=== PATIENT | male | born 1950 | race Caucasian/White ===

== ENCOUNTER 2017-08-12 09:02 | Inpatient (IN) | payer OTHER ==
[~2017-08-12] VITALS: Ht 182.9 cm; Wt 103.7 kg
[2017-08-12 10:11] LABS: HEMATOCRIT 50.5 % (38.0-50.0); HEMOGLOBIN 17.5 G/DL (12.5-16.6); MCH 29.2 PG (29.0-34.0); MCHC 34.7 G/DL (30.0-36.0); MCV 84.3 FL (86-99); NRBC (%) 0.1 /100 WBC (0-0); PLATELET COUNT 378 K/uL (156-360); RBC DIS.WIDTH-CV 14.5 % (11.8-14.6); RBC DIS.WIDTH-SD 43.8 % (39-53); RED BLOOD COUNT 5.99 M/uL (4.00-5.50); WHITE BLOOD COUNT 17.5 K/uL (4.1-10.2)
[2017-08-12 10:15] LABS: ALBUMIN 4.6 g/dL (3.2-4.8)
[2017-08-12 10:16] LABS: CHLORIDE 97 mEq/L (99-109); POTASSIUM 3.7 mEq/L (3.7-5.4); SODIUM 140 mEq/L (136-147)
[2017-08-12 10:18] LABS: GLUCOSE 158 mg/dL (70-99); TOTAL PROTEIN 8.5 g/dL (6.4-8.3)
[2017-08-12 10:20] LABS: TOTAL BILIRUBIN 0.4 mg/dL (0.0-1.0)
[2017-08-12 10:21] LABS: ALKALINE PHOSPHATASE 72 IU/L (3-129); CREATININE 1.5 mg/dL (0.6-1.3); GFR ESTIMATE (CALCULATED) 50 mL/min/ (58.99-99999)
[2017-08-12 10:23] LABS: AST (GOT) 34 IU/L (2-34); UREA NITROGEN (BUN) 16 mg/dL (9-23)
[2017-08-12 10:24] LABS: ALT (GPT) 68 IU/L (3-49)
[2017-08-12 10:25] LABS: LIPASE 33 U/L (1.0-51.0)
[2017-08-12 13:07] LABS: APPEARANCE CLEAR ((CLEAR)); BILIRUBIN NEGATIVE; BLOOD NEGATIVE; COLOR YELLOW ((YELLOW)); GLUCOSE (STRIP) NEGATIVE; KETONES NEGATIVE; LEUKOCYTES NEGATIVE; NITRITE NEGATIVE; PROTEIN (STRIP) NEGATIVE; SPECIFIC GRAVITY 1.053 (1.000-1.030); UROBILINOGEN 0.2 MG/DL (0.2-1.0)
[2017-08-12] MEDS ORDERED: ALPRAZOLAM0.25 M2 PO (14:01)
[2017-08-12] MEDS ORDERED: OMEPRAZOLE40 M1 PO (14:01)
[2017-08-12] MEDS ORDERED: DICLOFENAC SODI75 MG PO (14:02)
[2017-08-12] MEDS ORDERED: CELEBREX200 MG PO (14:03)
[2017-08-12] MEDS ORDERED: LYRICA50 MG PO (14:03)
[2017-08-12] MEDS ORDERED: ZESTORETIC 20-1 EAC1 PO (14:04)
[2017-08-12] MEDS ORDERED: CENTRUM SILVER1 EAC5 PO (14:04)
[2017-08-13] VITALS (7 sets, daily range): BP systolic 130–150; BP diastolic 69–86
[2017-08-13 07:12] LABS: CHLORIDE 107 MEQ/L (99-109); CREATININE 1.2 MG/DL (0.6-1.3); GFR ESTIMATE (CALCULATED) > 59 mL/min/ (58.99-99999); GLUCOSE 133 mg/dL (70-99); MAGNESIUM 1.6 mg/dl (1.3-2.7); PHOSPHORUS 3.2 mg/dL (2.5-4.9); POTASSIUM 4.1 MEQ/L (3.7-5.4); SODIUM 142 MEQ/L (136-147); UREA NITROGEN (BUN) 18 mg/dL (9-23)
[2017-08-13 07:26] LABS: HEMATOCRIT 37.2 % (38.0-50.0); MCH 29.2 PG (29.0-34.0); MCHC 33.3 G/DL (30.0-36.0); MCV 87.5 FL (86-99); PLATELET COUNT 267 K/uL (156-360); RBC DIS.WIDTH-CV 14.9 % (11.8-14.6); RBC DIS.WIDTH-SD 47.8 % (39-53); WHITE BLOOD COUNT 10.2 K/uL (4.1-10.2)
[2017-08-13 07:30] LABS: HEMOGLOBIN 12.4 G/DL (12.5-16.6); RED BLOOD COUNT 4.25 M/uL (4.00-5.50)
[2017-08-14 00:38] VITALS: BP 128/76
[2017-08-14 04:00] VITALS: BP 147/80
[2017-08-14 05:29] LABS: HEMATOCRIT 34.1 % (38.0-50.0); HEMOGLOBIN 10.9 G/DL (12.5-16.6); MCV 87.7 FL (86-99); PLATELET COUNT 253 K/uL (156-360); RBC DIS.WIDTH-CV 15.2 % (11.8-14.6); RBC DIS.WIDTH-SD 48.3 % (39-53); RED BLOOD COUNT 3.89 M/uL (4.00-5.50); WHITE BLOOD COUNT 10.5 K/uL (4.1-10.2)
[2017-08-14 06:00] LABS: CHLORIDE 107 MEQ/L (99-109); CREATININE 0.9 MG/DL (0.6-1.3); GFR ESTIMATE (CALCULATED) > 59 mL/min/ (58.99-99999); GLUCOSE 121 mg/dL (70-99); SODIUM 141 MEQ/L (136-147); UREA NITROGEN (BUN) 15 mg/dL (9-23)
[2017-08-14 07:05] VITALS: BP 135/76
[2017-08-14 12:15] VITALS: BP 133/69
[2017-08-14 15:27] VITALS: BP 147/76
[2017-08-14 19:15] VITALS: BP 148/91
[2017-08-15] VITALS (7 sets, daily range): BP systolic 155–179; BP diastolic 76–90
[2017-08-15 06:04] LABS: HEMATOCRIT 31.4 % (38.0-50.0); HEMOGLOBIN 10.1 G/DL (12.5-16.6); MCH 28.1 PG (29.0-34.0); MCHC 32.2 G/DL (30.0-36.0); MCV 87.2 FL (86-99); PLATELET COUNT 186 K/uL (156-360); RBC DIS.WIDTH-CV 14.8 % (11.8-14.6); RBC DIS.WIDTH-SD 47.9 % (39-53); WHITE BLOOD COUNT 10.4 K/uL (4.1-10.2)
[2017-08-15 06:52] LABS: CHLORIDE 104 MEQ/L (99-109); CREATININE 0.7 MG/DL (0.6-1.3); GFR ESTIMATE (CALCULATED) > 59 mL/min/ (58.99-99999); GLUCOSE 117 mg/dL (70-99); POTASSIUM 4.1 MEQ/L (3.7-5.4); SODIUM 136 MEQ/L (136-147); UREA NITROGEN (BUN) 13 mg/dL (9-23)
[2017-08-15 06:59] LABS: MAGNESIUM 2.3 mg/dl (1.3-2.7)
[2017-08-15 09:33] LABS: TROP-I INTERPRETATION NEGATIVE; TROPONIN-I < 0.01 ng/mL (0.0-0.30)
[2017-08-16] VITALS (7 sets, daily range): BP systolic 139–157; BP diastolic 65–88
[2017-08-16 05:54] LABS: CHLORIDE 100 MEQ/L (99-109); CREATININE 0.8 MG/DL (0.6-1.3); GFR ESTIMATE (CALCULATED) > 59 mL/min/ (58.99-99999); GLUCOSE 101 mg/dL (70-99); POTASSIUM 3.7 MEQ/L (3.7-5.4); SODIUM 136 MEQ/L (136-147); UREA NITROGEN (BUN) 10 mg/dL (9-23)
[2017-08-16 05:57] LABS: HEMATOCRIT 30.4 % (38.0-50.0); HEMOGLOBIN 9.9 G/DL (12.5-16.6); MCH 28.3 PG (29.0-34.0); MCHC 32.6 G/DL (30.0-36.0); MCV 86.9 FL (86-99); RBC DIS.WIDTH-SD 47.8 % (39-53); WHITE BLOOD COUNT 10.7 K/uL (4.1-10.2)
[2017-08-16 06:05] LABS: PLATELET COUNT 262 K/uL (156-360)
[2017-08-17] VITALS (7 sets, daily range): BP systolic 135–156; BP diastolic 70–88
[2017-08-17 06:08] LABS: HEMATOCRIT 30.6 % (38.0-50.0); HEMOGLOBIN 10.2 G/DL (12.5-16.6); MCH 28.7 PG (29.0-34.0); MCHC 33.3 G/DL (30.0-36.0); MCV 86.2 FL (86-99); NRBC (%) 0.2 /100 WBC (0-0); PLATELET COUNT 280 K/uL (156-360); RBC DIS.WIDTH-CV 14.8 % (11.8-14.6); RBC DIS.WIDTH-SD 46.3 % (39-53); RED BLOOD COUNT 3.55 M/uL (4.00-5.50); WHITE BLOOD COUNT 10.3 K/uL (4.1-10.2)
[2017-08-17 06:32] LABS: CHLORIDE 97 MEQ/L (99-109); CREATININE 0.7 MG/DL (0.6-1.3); GFR ESTIMATE (CALCULATED) > 59 mL/min/ (58.99-99999); GLUCOSE 94 mg/dL (70-99); POTASSIUM 3.8 MEQ/L (3.7-5.4); SODIUM 134 MEQ/L (136-147); UREA NITROGEN (BUN) 10 mg/dL (9-23)
[2017-08-18 03:52] VITALS: BP 144/85
[2017-08-18 06:39] LABS: HEMATOCRIT 31.1 % (38.0-50.0); HEMOGLOBIN 10.4 G/DL (12.5-16.6); MCH 28.6 PG (29.0-34.0); MCHC 33.4 G/DL (30.0-36.0); MCV 85.4 FL (86-99); NRBC (%) 0.4 /100 WBC (0-0); PLATELET COUNT 283 K/uL (156-360); RBC DIS.WIDTH-CV 14.7 % (11.8-14.6); RBC DIS.WIDTH-SD 45.6 % (39-53); RED BLOOD COUNT 3.64 M/uL (4.00-5.50); WHITE BLOOD COUNT 9.4 K/uL (4.1-10.2)
[2017-08-18 06:56] LABS: CHLORIDE 96 MEQ/L (99-109); CREATININE 0.8 MG/DL (0.6-1.3); GFR ESTIMATE (CALCULATED) > 59 mL/min/ (58.99-99999); GLUCOSE 104 mg/dL (70-99); POTASSIUM 3.4 MEQ/L (3.7-5.4); SODIUM 135 MEQ/L (136-147); UREA NITROGEN (BUN) 9 mg/dL (9-23)
[2017-08-18 07:06] VITALS: BP 132/74
[2017-08-18] MEDS ORDERED: NORCO 5/3251 TABLET PO (10:38)
[2017-08-18] MEDS ORDERED: COLACE100 MG PO (10:38)
[2017-08-18 12:21] VITALS: BP 140/83
[2017-08-18] MEDS ORDERED: ADULT FOLDING1 EACH MC (13:58)
[2017-08-18 15:51] VITALS: BP 144/74
[2017-08-18 20:00] VITALS: BP 141/86
[2017-08-19] VITALS: BP 141/76
[2017-08-19 03:47] VITALS: BP 143/76
[2017-08-19 07:12] LABS: HEMATOCRIT 30.6 % (38.0-50.0); HEMOGLOBIN 10.1 G/DL (12.5-16.6); MCH 28.1 PG (29.0-34.0); NRBC (%) 0.3 /100 WBC (0-0); PLATELET COUNT 296 K/uL (156-360); RBC DIS.WIDTH-CV 14.8 % (11.8-14.6); RBC DIS.WIDTH-SD 45.6 % (39-53); WHITE BLOOD COUNT 9.1 K/uL (4.1-10.2)
[2017-08-19 07:25] VITALS: BP 149/84
[2017-08-19 07:40] LABS: CHLORIDE 98 MEQ/L (99-109); CREATININE 0.8 MG/DL (0.6-1.3); GFR ESTIMATE (CALCULATED) > 59 mL/min/ (58.99-99999); GLUCOSE 105 mg/dL (70-99); POTASSIUM 3.3 MEQ/L (3.7-5.4); SODIUM 137 MEQ/L (136-147); UREA NITROGEN (BUN) 9 mg/dL (9-23)
[2017-08-19 11:12] VITALS: BP 140/78
== END 2017-08-19 12:36 | disposition home or self-care (01) | DRG 329 ==
LOC: EME 09:02 → ENRESERV 13:07 → EDOF 13:08 → 4EAST 13:08 → EDOF 13:18 → ENRESERV 16:50 → EDOF 23:22 → ENRESERV 23:26 → 4EAST 08-13 01:07 → ENRESERV 08-17 18:25 → 2EAST 08-17 20:36
PROVIDERS: Internal Medicine; Physician Assistant; Surgery
DX: K56.1 Intussusception (principal); K56.50 Intestinal adhesions [bands], unspecified as to partial versus complete obstruction; K56.600 Partial intestinal obstruction, unspecified as to cause; E66.9 Obesity, unspecified; N17.9 Acute kidney failure, unspecified; D72.829 Elevated white blood cell count, unspecified; I10 Essential (primary) hypertension; K21.9 Gastro-esophageal reflux disease without esophagitis; M19.90 Unspecified osteoarthritis, unspecified site; F41.9 Anxiety disorder, unspecified; Z91.09 Other allergy status, other than to drugs and biological substances; J96.01 Acute respiratory failure with hypoxia; Z68.32 Body mass index [BMI] 32.0-32.9, adult; E83.42 Hypomagnesemia; R26.9 Unspecified abnormalities of gait and mobility; Z87.891 Personal history of nicotine dependence; R61 Generalized hyperhidrosis; E87.6 Hypokalemia; J98.11 Atelectasis; E86.0 Dehydration; K56.7 Ileus, unspecified; D62 Acute posthemorrhagic anemia; R60.1 Generalized edema; R73.9 Hyperglycemia, unspecified
CPT/HCPCS: 71045; 71046; 74177; 80048; 80053; 81003; 82948; 83605; 83690; 83735; 83880; 84100; 84484; 85027; 87040; 88307; 93005; 94640; 94640 76; 94799; 97530 GO; 97530 GP; 99202; 99281; 99285; B4087; C9113; J0131; J0330; J0360; J1100; J1170; J1644; J1650; J1815; J1885; J2405; J2543; J2765; J3010; J3475; J7030; J7040; J7042; J7050; P9047; S0074

== ENCOUNTER 2017-11-03 11:12 | Inpatient (IN) | payer OTHER ==
[~2017-11-03] VITALS: Ht 188 cm; Wt 98.3 kg
[~2017-11-03 11:12] MED LIST: ADULT FOLDING1 EACH MC; ALPRAZOLAM0.25 M2 PO; CELEBREX200 MG PO; CENTRUM SILVER1 EAC5 PO; COLACE100 MG PO; DICLOFENAC SODI75 MG PO; LYRICA50 MG PO; NORCO 5/3251 TABLET PO; OMEPRAZOLE40 M1 PO; ZESTORETIC 20-1 EAC1 PO
[2017-11-03 12:04] LABS: BASOPHIL (%) 0.3 % (0-1); BASOPHIL COUNT 0.1 K/uL (0-0.1); EOSINOPHIL (%) 1.2 % (0-5); EOSINOPHIL COUNT 0.2 K/uL (0-0.3); HEMOGLOBIN 11.5 G/DL (12.5-16.6); IMMATURE GRANULOCYTE (%) 2.4 % (0.0-0.7); LYMPHOCYTE (%) 9.2 % (15-42); LYMPHOCYTE COUNT 1.6 K/uL (1.0-2.8); MCH 25.5 PG (29.0-34.0); MCHC 32.9 G/DL (30.0-36.0); MCV 77.6 FL (86-99); MONOCYTE (%) 5.9 % (3-12); PLATELET COUNT 551 K/uL (156-360); RBC DIS.WIDTH-CV 15.4 % (11.8-14.6); RED BLOOD COUNT 4.51 M/uL (4.00-5.50); WHITE BLOOD COUNT 17.3 K/uL (4.1-10.2)
[2017-11-03 12:09] LABS: INTER. NORMALIZED RATIO 1.3
[2017-11-03 12:14] LABS: CHLORIDE 96 mEq/L (99-109); POTASSIUM 3.7 mEq/L (3.7-5.4); SODIUM 135 mEq/L (136-147)
[2017-11-03 12:16] LABS: GLUCOSE 116 mg/dL (70-99)
[2017-11-03 12:20] LABS: CREATININE 1.1 mg/dL (0.6-1.3); GFR ESTIMATE (CALCULATED) > 59 mL/min/ (58.99-99999)
[2017-11-03 12:21] LABS: UREA NITROGEN (BUN) 18 mg/dL (9-23)
[2017-11-03] MEDS ORDERED: CELEBREX200 MG PO (14:36)
[2017-11-03] MEDS ORDERED: ZOFRAN4 MG PO (14:38)
[2017-11-03 16:54] VITALS: BP 128/71
[2017-11-03 19:42] VITALS: BP 116/56
[2017-11-03 22:35] VITALS: BP 121/61
[2017-11-04 04:01] VITALS: BP 110/58
[2017-11-04 05:27] LABS: HEMATOCRIT 34.5 % (38.0-50.0); HEMOGLOBIN 10.5 G/DL (12.5-16.6); MCH 23.9 PG (29.0-34.0); MCHC 30.4 G/DL (30.0-36.0); MCV 78.4 FL (86-99); PLATELET COUNT 529 K/uL (156-360); RBC DIS.WIDTH-CV 15.4 % (11.8-14.6); WHITE BLOOD COUNT 11.4 K/uL (4.1-10.2)
[2017-11-04 07:59] VITALS: BP 129/74
[2017-11-04] MEDS ORDERED: OXYCODONE HCL5 MG PO (08:45)
[2017-11-04] MEDS ORDERED: AUGMENTIN875 MG PO (08:45)
[2017-11-04] MEDS ORDERED: SALINE FLUSH 1010 ML INTRA-CATH (08:45)
== END 2017-11-04 13:24 | disposition home health service (06) | DRG 373 ==
LOC: EME 11:12 → EDOF 13:47 → ENRESERV 13:56 → EDOF 13:57 → ENRESERV 14:22 → 2EAST 16:26
PROVIDERS: Emergency Medicine; Surgery
PROC: 0W9M30Z Drainage of Male Perineum with Drainage Device, Percutaneous Approach (ICD-10-PCS; principal; 2017-11-03)
DX: K65.1 Peritoneal abscess (principal); K21.9 Gastro-esophageal reflux disease without esophagitis; F41.9 Anxiety disorder, unspecified; M19.90 Unspecified osteoarthritis, unspecified site; N50.1 Vascular disorders of male genital organs; R63.0 Anorexia; Z87.891 Personal history of nicotine dependence; Z68.27 Body mass index [BMI] 27.0-27.9, adult
CPT/HCPCS: 36415; 49405; 80048; 81003; 85025; 85027; 85610; 87040; 87070; 87075; 87076; 87077; 87186; 87205; 87493; 87506; 99281; 99285; C1729; C1769; J2543; J3010; J7030; J7050; J7120

== ENCOUNTER → 2017-11-11 | Outpatient (CLI) | payer OTHER ==
[~2017-11-11] MED LIST changes: +AUGMENTIN875 MG PO; +OXYCODONE HCL5 MG PO; +SALINE FLUSH 1010 ML INTRA-CATH; +ZOFRAN4 MG PO
== END | disposition home or self-care (01) ==
LOC: RAD 13:00
PROC: 0KP Muscles, Removal (ICD-10-PCS; principal; 2017-11-11)
DX: M60.08 Infective myositis, other site (principal)
CPT/HCPCS: 72192